=== PATIENT | male | born 1965 | race Caucasian/White ===

== ENCOUNTER 2017-09-20 10:54 | Emergency (ER) | payer MEDICAID ==
[2017-09-20] MEDS ORDERED: HYDROmorphone HCL PF 1 MG/ML VIAL IV PUSH (11:30)
[2017-09-20 12:00] LABS: HEMATOCRIT 41.4 % (39.0-51.0); HEMOGLOBIN 13.7 GM/DL (13.0-17.0); MEAN CELL VOLUME 89.5 FL (80.0-100.0); MEAN CORPUSCULAR HEMOGLOBIN 29.6 PG (27.0-34.0); PLATELET COUNT 251 TH/MM3 (150-450); RED BLOOD COUNT 4.63 MIL/MM3 (4.50-5.90); RED CELL DISTRIBUTION WIDTH 14.4 % (11.6-17.2); WHITE BLOOD COUNT 10.7 TH/MM3 (4.0-11.0)
[2017-09-20 12:01] LABS: AUTOMATED NEUTROPHIL # 8.8 TH/MM3 (1.8-7.7); BASOPHIL # 0.5 TH/MM3 (0-0.2); BASOPHIL % 4.3 % (0.0-2.0); EOSINOPHIL % 0.1 % (0.0-4.0); LYMPH % 12.2 % (9.0-44.0); LYMPHOCYTE # 1.3 TH/MM3 (1.0-4.8); MEAN PLATELET VOLUME 9.1 FL (7.0-11.0); MONO % 0.8 % (0.0-8.0); MONOCYTE # 0.1 TH/MM3 (0-0.9); NEUT % 82.6 % (16.0-70.0)
[2017-09-20] MEDS: HYDROmorphone HCL PF 2 MG/ML VIAL IV PUSH ×2 (12:04→13:14)
[2017-09-20 12:06] LABS: HEMO FLAGS DIFF FINAL
[2017-09-20 12:27] LABS: CHLORIDE 109 MEQ/L (98-107); POTASSIUM 3.9 MEQ/L (3.5-5.1); SODIUM (NA) 139 MEQ/L (136-145)
[2017-09-20 12:29] LABS: CALCIUM 8.3 MG/DL (8.5-10.1)
[2017-09-20 12:30] LABS: ANION GAP 6 MEQ/L (5-15); BICARBONATE 24.5 MEQ/L (21.0-32.0); BLOOD UREA NITROGEN 14 MG/DL (7-18); GLUCOSE,RANDOM 218 MG/DL (74-106)
[2017-09-20 12:33] LABS: ALT (GPT) 36 U/L (12-78); AST (GOT) 13 U/L (15-37); CREATININE 0.95 MG/DL (0.60-1.30); GLOMERULAR FILTRATION RATE 84 ML/MIN (>89)
[2017-09-20 12:35] LABS: TOTAL BILIRUBIN ADULT 0.4 MG/DL (0.2-1.0); TOTAL PROTEIN 7.2 GM/DL (6.4-8.2)
[2017-09-20] MEDS: LIDOCAINE HCL 2% JELLY 5 ML SYRINGE TOPICAL (12:35)
[2017-09-20 12:36] LABS: ALKALINE PHOSPHATASE 99 U/L (45-117)
[2017-09-20 14:02] LABS: BILIRUBIN, URINE NEG (NEG); BLOOD, URINE SMALL (NEG); GLUCOSE,URINE 500 mg/dL (NEG); KETONE, URINE NEG (NEG); NITRITE,URINE POS (NEG); PH, URINE 5.5 (5.0-8.5); URINE COLOR YELLOW (YELLW/STRAW); URINE LEUKOCYTE ESTERASE NEG (NEG)
[2017-09-20 14:12] LABS: BACTERIA, URINE MANY /hpf; COMMENT (UR) CATH-CULTURE IND; CULTURE IF INDICATED CATH CULTURE IND
== END 2017-09-20 14:50 | disposition home or self-care (01) ==
LOC: PHED 10:54
DX: N39.0 Urinary tract infection, site not specified (principal); F31.9 Bipolar disorder, unspecified; F41.9 Anxiety disorder, unspecified; J44.9 Chronic obstructive pulmonary disease, unspecified; I10 Essential (primary) hypertension; F17.200 Nicotine dependence, unspecified, uncomplicated; Z87.19 Personal history of other diseases of the digestive system; Z85.46 Personal history of malignant neoplasm of prostate; Z79.899 Other long term (current) drug therapy
CPT/HCPCS: 51703; 80053; 81001; 85025; 86403; 87086; 96374; 96376; 99284-25

== ENCOUNTER 2017-09-21 16:33 | Emergency (ER) | payer MEDICAID | END 2017-09-21 17:16 | disposition home or self-care (01) | LOC: PHED 16:33 | DX: Z46.6 Encounter for fitting and adjustment of urinary device (principal); Z85.51 Personal history of malignant neoplasm of bladder; F31.9 Bipolar disorder, unspecified; F41.9 Anxiety disorder, unspecified; I10 Essential (primary) hypertension; J44.9 Chronic obstructive pulmonary disease, unspecified; I25.10 Atherosclerotic heart disease of native coronary artery without angina pectoris; Z87.19 Personal history of other diseases of the digestive system; K76.9 Liver disease, unspecified | CPT/HCPCS: 99283 ==

== ENCOUNTER 2017-09-27 15:28 | Emergency (ER) | payer MEDICAID ==
[~2017-09-27 15:28] MED LIST: CEPH-460 PO; TAMS5CAP PO; TRAM50TA PO
[2017-09-27 15:39] VITALS: BP 191/108; PULSE 91; RESP 16; TEMP 98.8; O2SAT 97
[2017-09-27 16:56] LABS: BILIRUBIN, URINE NEG (NEG); BLOOD, URINE SMALL (NEG); GLUCOSE,URINE NEG (NEG); KETONE, URINE NEG (NEG); NITRITE,URINE POS (NEG); PH, URINE 5.5 (5.0-8.5); URINE COLOR YELLOW (YELLW/STRAW); URINE LEUKOCYTE ESTERASE MOD (NEG)
[2017-09-27 17:04] LABS: BACTERIA, URINE MANY /hpf; RBC, URINE 15-19 /hpf (0-3); WBC, URINE 100-200 /hpf (0-5); WHITE BLOOD CELL CLUMPS MOD
--- NOTE | 2017-09-27 17:12 | PD ---
HPI Chief Complaint: Complaint Time Seen by Provider: 16:22 Travel History International Travel<30 days: No Contact w/Intl Traveler<30days: No Traveled to known affect area: No History of Present Illness HPI This 51-year-old male is complaining of trouble urinating. Says he has been having trouble for some time. He was here on September 20 with urinary retention. A Cr catheter was inserted at that time and 800 cc of urine obtained. PFSH Past Medical History Hx Anticoagulant Therapy: No Autoimmune Disease: Yes Bipolar Disorder: Yes Anxiety: Yes Depression: Yes Cancer: Yes ( Bladder cancer.) Cardiac Catheterization: Yes Cardiovascular Problems: Yes (htn not on meds) Chest Pain: Yes COPD: Yes Coronary Artery Disease: Yes Diminished Hearing: No Endocrine: Yes (pancreatitis) Gastrointestinal Disorders: Yes (reports pancreatitis LIVER DISEASE [place]) Genitourinary: No Headaches: No Kidney Stones: Yes Musculoskeletal: No Neurologic: No Psychiatric: Yes (Patient has reported Bipolar Disorder) Reproductive: No Respiratory: Yes (copd) Immunizations Current: Yes Pancreatitis: Yes Radiation Therapy: Yes (PROSTATE) Seizures: No Tetanus Vaccination: > 5 Years Past Surgical History Abdominal Surgery: Yes (gall bladder removal) Cholecystectomy: Yes Coronary Stent: Yes Other Surgery: Yes Social History Alcohol Use: No Tobacco Use: Yes (1ppd) Substance Use: No Allergies-Medications (Allergen,Severity, Reaction): Coded Allergies: acetaminophen (Verified Allergy, Unknown, 09/27/17) patient states related to liver disease Reported Meds & Prescriptions Reported Meds & Active Scripts Active Reported Flomax (Tamsulosin HCl) 0.4 Mg Cap 0.4 Mg PO DAILY Physical Exam Narrative GENERAL: Well-developed male SKIN: Focused skin assessment warm/dry. HEAD: Atraumatic. Normocephalic. EYES: Pupils equal and round. No scleral icterus. No injection or drainage. ENT: No nasal bleeding or discharge. Mucous membranes pink and moist. NECK: Trachea midline. No JVD. CARDIOVASCULAR: Regular rate and rhythm. No murmur appreciated. RESPIRATORY: No accessory muscle use. Clear to auscultation. Breath sounds equal bilaterally. GASTROINTESTINAL: Abdomen soft, , nondistended. Hepatic and splenic margins not palpable. There is suprapubic tenderness. No obvious distention. No palpable mass MUSCULOSKELETAL: No obvious deformities. No clubbing. No cyanosis. No edema. NEUROLOGICAL: Awake and alert. No obvious cranial nerve deficits. Motor grossly within normal limits. Normal speech. PSYCHIATRIC: Patient is quite anxious Data Data Last Documented VS Vital Signs Date Time Temp Pulse Resp B/P (MAP) Pulse Ox O2 Delivery O2 Flow Rate FiO2 09/27/17 15:39 98.8 91 16 191/108 (135) 97 Orders Orders Urinalysis - C+S If Indicated (09/27/17 16:40) Bladder Scan PRN (09/27/17 16:40) Urine Culture (09/27/17 16:40) Labs Laboratory Tests Test 09/27/17 16:40 Urine Collection Type CLEAN CATCH Urine Color YELLOW Urine Turbidity SL CLOUDY Urine pH 5.5 Urine Specific [place] GREATER/EQUAL 1.030 Urine Protein TRACE mg/dL Urine Glucose (UA) NEG mg/dL Urine Ketones NEG mg/dL Urine Occult Blood SMALL Urine Nitrite POS Urine Bilirubin NEG Urine Urobilinogen 0.2 MG/DL Urine Leukocyte Esterase MOD Urine RBC 15-19 /hpf Urine WBC 100-200 /hpf Urine WBC Clumps MOD Urine Squamous Epithelial Cells 6-8 /hpf Urine Bacteria MANY /hpf Microscopic Urinalysis Comment CULTURE INDICATED Urine Collection Time 1640 MDM Medical Decision Making Medical Screen Exam Complete: Yes Emergency Medical Condition: Yes Medical Record Reviewed: Yes Differential Diagnosis Differential includes UTI, urinary retention Narrative Course Plan was to do a bladder scan to see if there was enlarged bladder. Also check urinalysis for infection. Workup was underway when the patient decided to leave quite abruptly before receiving any results or any treatment Diagnosis Primary Impression: Dysuria Disposition: 07 AGAINST MEDICAL ADVICE Condition: Stable Vivek Gandhi MD September 27, 2017 17:12
== END 2017-09-27 18:22 | disposition left against medical advice (07) ==
LOC: PHED 15:28
DX: R30.0 Dysuria (principal); R82.71 Bacteriuria; I10 Essential (primary) hypertension; I25.10 Atherosclerotic heart disease of native coronary artery without angina pectoris; J44.9 Chronic obstructive pulmonary disease, unspecified; K50.90 Crohn's disease, unspecified, without complications; F17.200 Nicotine dependence, unspecified, uncomplicated; Z85.51 Personal history of malignant neoplasm of bladder; Z53.20 Procedure and treatment not carried out because of patient's decision for unspecified reasons
CPT/HCPCS: 51798; 81001; 86403; 87086